=== PATIENT | male | born 1960 | race Caucasian/White ===

== ENCOUNTER 2016-09-08 08:31 | Emergency (ER) | payer MEDICARE, OTHER ==
[~2016-09-08] VITALS: Ht 185.4 cm; Wt 113.4 kg
[2016-09-08] MEDS: RT-ALBUTEROL/IPRATROPIUM 3 ML (DUONEB) VIAL ONE (08:58)
[2016-09-08 09:27] LABS: BASOPHILS % (AUTO) 0 % (0-10); EOSINOPHILS # (AUTO) 0.2 10^3/uL (0.0-0.3); EOSINOPHILS % (AUTO) 3 % (0-10); LYMPHOCYTES # (AUTO) 0.8 X 10^3 (1.0-4.0); LYMPHOCYTES % (AUTO) 14 % (12-44); MEAN CORPUSCULAR HEMOGLOBIN 20 PG (25-34); MEAN CORPUSCULAR HGB CONC 29 G/DL (32-36); MEAN CORPUSCULAR VOLUME 71 FL (80-99); MEAN PLATELET VOLUME 10.2 FL (7.4-10.4); MONOCYTES # (AUTO) 0.4 X 10^3 (0.0-1.0); MONOCYTES % (AUTO) 7 % (0-12); NEUTROPHILS # (AUTO) 4.5 X 10^3 (1.8-7.8); NEUTROPHILS % (AUTO) 76 % (42-75); PLATELET COUNT 198 10^3/uL (130-400); RED BLOOD COUNT 5.15 10^6/uL (4.35-5.85); WHITE BLOOD COUNT 5.9 10^3/uL (4.3-11.0)
--- NOTE | 2016-09-08 09:30 | Diagnostic Imaging Report ---
Indication: Dyspnea. Discussion: Single portable upright view of the chest was obtained, no comparison. There is volume loss noted within the right hemithorax with linear parenchymal densities which could represent scarring or postoperative changes. Recommend comparison with old films if available. If no comparisons are available, chest CT with contrast could be performed for further evaluation and to exclude an underlying pulmonary lesion. Opacities within the right lung base could represent atelectasis and/or pneumonia. The left lung is well-aerated. No pleural fluid or pneumothorax. Normal heart size. Impression: 1. Volume loss and opacities within the right lung as described. See above discussion and recommendations. Dictated by: Dictated on workstation # [id number]
[2016-09-08] MEDS: DEXAMETHASONE 4 MG/ML SDV (DECADRON) IH ONE (09:38)
[2016-09-08 09:53] LABS: ALANINE AMINOTRANSFERASE 12 U/L (0-55); ALBUMIN 4.1 GM/DL (3.2-4.5); ANION GAP 12 MMOL/L (5-14); ASPARTATE AMINO TRANSFERASE 18 U/L (5-34); BILIRUBIN,TOTAL 0.4 MG/DL (0.1-1.0); BLOOD UREA NITROGEN 17 MG/DL (7-18); BUN/CREATININE RATIO 17; CALCIUM 8.9 MG/DL (8.5-10.1); CARBON DIOXIDE 21 MMOL/L (21-32); CHLORIDE 108 MMOL/L (98-107); CREATININE SERUM 0.98 MG/DL (0.60-1.30); GFR ESTIMATED > 60; GLUCOSE 107 MG/DL (70-105); SODIUM 141 MMOL/L (135-145); TOTAL PROTEIN 7.2 GM/DL (6.4-8.2)
[2016-09-08] MEDS: RT-ALBUTEROL/IPRATROPIUM 3 ML (DUONEB) VIAL INH ONE (09:55)
[2016-09-08 10:23] LABS: BILIRUBIN,URINE NEGATIVE (NEGATIVE); KETONES,URINE NEGATIVE (NEGATIVE); LEUKOCYTE ESTERASE ,URINE NEGATIVE (NEGATIVE); NITRITE,URINE NEGATIVE (NEGATIVE); PH,URINE 6 (5-9); PROTEIN,URINE 2+ (NEGATIVE); UROBILINOGEN,URINE NORMAL (NORMAL)
[2016-09-08] MEDS: KETOROLAC 30 MG/ML VIAL IVP ONE (10:26)
--- NOTE | 2016-09-08 10:29 | ED Respiratory ---
General Chief Complaint: Respiratory Problems Stated Complaint: SOB Nursing Triage Note: PT TO ROOM 5 W CO OF SOA FOR WORSENING PAST 2 DAYS. PT WEARS O2 AT 3L N/C NORMALLY, HAS BEEN UP TO 4L TODAY. NO COUGH NOTED Source: patient Exam Limitations: no limitations History of Present Illness Time seen by provider: 10:24 Initial Comments The patient is a 55-year-old white male who presents today with complaints of increasing shortness of breath. He reports that this began last evening and has progressed. He is a 60+ pack year smoker and quit 2 years ago. The occasion of his quitting was a pneumothorax which failed chest tube and conservative therapy and required a thoracotomy. This was performed by Dr. López in [place]. He has a nebulizer and has home O2 which he uses at 3 L/m. He has not established a local physician. He also reports that he has hypertension and venous stasis but is not aware of any previous heart disease Timing/Duration: this morning Prior Episodes/Possible Cause: occasional episodes Modifying Factors: Improves With Albuterol Nebulizer Associated Symptoms: chest pain/soreness Allergies and Home Medications Allergies Coded Allergies: Sulfa (Sulfonamide Antibiotics) (Verified Allergy, Unknown, 09/08/16) Constitutional: see HPI EENTM: no symptoms reported Respiratory: see HPI, cough, dyspnea on exertion, short of breath Cardiovascular: no symptoms reported Gastrointestinal: no symptoms reported Genitourinary: no symptoms reported Musculoskeletal: no symptoms reported Skin: other (venous stasis dermatitis) Psychiatric/Neurological: No Symptoms Reported Hematologic/Lymphatic: No Symptoms Reported Immunological/Allergic: no symptoms reported Past Tomaqqz-Duszyd-Ckrsue Hx Patient Social History Alcohol Use: Denies Use Recreational Drug Use: No Smoking Status: Former Smoker Recent Foreign Travel: No Contact w/Someone Who Travel: No Recent Infectious Disease Expo: No Recent Hopitalizations: No Seasonal Allergies Seasonal Allergies: No Physical Exam Vital Signs Vital Sign - Last 12Hours 09/08/16 09/08/16 08:35 08:59 Temp 97.2 Pulse 71 Resp 28 B/P (MAP) 185/91 Pulse Ox 94 O2 Delivery Nasal Cannula O2 Flow Rate 4.00 Capillary Refill : Less Than 3 Seconds General Appearance: moderate distress Eyes: Bilateral Eye Normal Inspection HEENT: normal ENT inspection Neck: full range of motion Respiratory: decreased breath sounds (very distant. Inspiration appears shallow) Cardiovascular: normal peripheral pulses, regular rate, rhythm, no edema, no gallop, no JVD, no murmur Extremities: normal range of motion, non-tender, normal inspection, no pedal edema, no calf tenderness, other (there is a deep bronzy discoloration to both ankles. Keratotic plaques are noted. 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, no motor/sensory deficits, alert, normal mood/affect, oriented x 3 Skin: normal color, warm/dry, cyanosis, cool, diaphoresis, damp Lymphatic: no adenopathy, axilla node tender (R), axilla node tender (L), inguinal node tender (R), inguinal node tender (L) Progress/Results/Core Measures Results/Orders Lab Results Laboratory Tests Test 09/08/16 09:15 09/08/16 09:50 Range/Units White Blood Count 5.9 4.3-11.0 10^3/uL Red Blood Count 5.15 4.35-5.85 10^6/uL Hemoglobin 10.5 L 13.3-17.7 G/DL Hematocrit 37 L 40-54 % Mean Corpuscular Volume 71 L 80-99 FL Mean Corpuscular Hemoglobin 20 L 25-34 PG Mean Corpuscular Hemoglobin Concent 29 L 32-36 G/DL Red Cell Distribution Width 22.0 H 10.0-14.5 % Platelet Count 198 130-400 10^3/uL Mean Platelet Volume 10.2 7.4-10.4 FL Neutrophils (%) (Auto) 76 H 42-75 % Lymphocytes (%) (Auto) 14 12-44 % Monocytes (%) (Auto) 7 0-12 % Eosinophils (%) (Auto) 3 0-10 % Basophils (%) (Auto) 0 0-10 % Neutrophils # (Auto) 4.5 1.8-7.8 X 10^3 Lymphocytes # (Auto) 0.8 L 1.0-4.0 X 10^3 Monocytes # (Auto) 0.4 0.0-1.0 X 10^3 Eosinophils # (Auto) 0.2 0.0-0.3 10^3/uL Basophils # (Auto) 0.0 0.0-0.1 10^3/uL Sodium Level 141 135-145 MMOL/L Potassium Level 4.0 3.6-5.0 MMOL/L Chloride Level 108 H 98-107 MMOL/L Carbon Dioxide Level 21 21-32 MMOL/L Anion Gap 12 5-14 MMOL/L Blood Urea Nitrogen 17 7-18 MG/DL Creatinine 0.98 0.60-1.30 MG/DL Estimat Glomerular Filtration Rate > 60 BUN/Creatinine Ratio 17 Glucose Level 107 H 70-105 MG/DL Calcium Level 8.9 8.5-10.1 MG/DL Total Bilirubin 0.4 0.1-1.0 MG/DL Aspartate Amino Transf (AST/SGOT) 18 5-34 U/L Alanine Aminotransferase (ALT/SGPT) 12 0-55 U/L Alkaline Phosphatase 67 40-136 U/L Total Protein 7.2 6.4-8.2 GM/DL Albumin 4.1 3.2-4.5 GM/DL Urine Color YELLOW Urine Clarity CLEAR Urine pH 6 5-9 Urine Specific [place] 1.015 L 1.016-1.022 Urine Protein 2+ H NEGATIVE Urine Glucose (UA) NEGATIVE NEGATIVE Urine Ketones NEGATIVE NEGATIVE Urine Nitrite NEGATIVE NEGATIVE Urine Bilirubin NEGATIVE NEGATIVE Urine Urobilinogen NORMAL NORMAL MG/DL Urine Leukocyte Esterase NEGATIVE NEGATIVE Urine RBC (Auto) NEGATIVE NEGATIVE Urine RBC NONE /HPF Urine WBC NONE /HPF Urine Squamous Epithelial Cells RARE /HPF Urine Crystals NONE /LPF Urine Bacteria NEGATIVE /HPF Urine Casts NONE /LPF Urine Mucus NEGATIVE /LPF Urine Culture Indicated NO My Orders Orders - LACEY ALCARAZ MD Cbc With Automated Diff (09/08/16 08:52) Comprehensive Metabolic Panel (09/08/16 08:52) Ua Culture If Indicated (09/08/16 08:52) Albuterol/Ipra Inhalation Soln (Duoneb I (09/08/16 08:50) Chest 1 View, Ap/Pa Only (09/08/16 08:53) Dexamethasone Injection (Decadron Inject (09/08/16 09:00) Svn Sm Volume Nebulizer Rt-Rfs (09/08/16 08:53) Ekg Tracing (09/08/16 08:53) Albuterol/Ipra Inhalation Soln (Duoneb I (09/08/16 09:45) Ketorolac Injection (Toradol Injection) (09/08/16 10:30) Ct Chest W (09/08/16 10:22) Iohexol Injection (Omnipaque 350 Mg/Ml 1 (09/08/16 10:30) Medications Given in ED Current Medications Medications Dose Ordered Sig/Su Route Start Time Stop Time Status Last Admin Dose Admin Albuterol/ Ipratropium 3 ml STK-MED ONCE .ROUTE 09/08/16 08:50 09/08/16 08:56 DC 09/08/16 08:58 3 ML Iohexol 100 ml ONCE ONCE IV 09/08/16 10:30 09/08/16 10:31 DC 09/08/16 11:07 95 ML Ketorolac Tromethamine 30 mg ONCE ONCE IVP 09/08/16 10:30 09/08/16 10:31 DC 09/08/16 10:26 30 MG Vital Signs/I&O Vital Sign - Last 12Hours 09/08/16 09/08/16 08:35 08:59 Temp 97.2 Pulse 71 Resp 28 B/P (MAP) 185/91 Pulse Ox 94 96 O2 Delivery Nasal Cannula O2 Flow Rate 4.00 4.00 Blood Pressure Mean: 122 Departure Communication Progress Notes CT scan was reported as consistent with pleural scarring and subsequent restrictive lung disease on the right. This is consistent with his previous pneumothorax and operative intervention. In addition a 1.5 cm hilar node of questionable etiology was noted. Impression Impression: Primary Impression: COPD plus reactive lung disease Disposition: 01 HOME, SELF-CARE Condition: Improved Departure-Patient Inst. Decision time for Depature: 11:35 Referrals: NO,LOCAL PHYSICIAN (PCP) Primary Care Physician Patient Instructions: Pleuritic Chest Pain (DC) Add. Discharge Instructions: All discharge instructions reviewed with patient and/or family. Voiced understanding. Take prednisone as directed beginning tomorrow. Continue use of oxygen. You may use your nebulizer up to every 4 hours. If recurrence of sensation of inability to breathe return to the emergency room. He will likely be admitted LACEY ALCARAZ MD Sep 08, 2016 10:29
[2016-09-08 10:34] LABS: SQUAMOUS EPITHELIAL CELL,UR RARE /HPF
[2016-09-08] MEDS: IOHEXOL 350 MG/ML 100 ML (OMNIPAQUE 350) VIAL IV ONE (11:07)
--- NOTE | 2016-09-08 11:31 | Diagnostic Imaging Report ---
PROCEDURE: CT chest with contrast only. TECHNIQUE: Multiple contiguous axial images were obtained through the chest after administration of intravenous contrast. INDICATION: Shortness of breath. COMPARISON: No prior studies are available for comparison. FINDINGS: There is architectural distortion and right suprahilar irregular curvilinear areas of consolidation and interstitial thickening likely related to scarring. Correlate with prior infections, including possible prior TB and/or previous surgery. There is background emphysema with bullae seen in the upper aspect of the right upper lobe and apical segment of the right lower lobe. There is no consolidation to suggest pneumonia or definite mass. No pleural effusion. No pericardial effusion. The heart size is mildly enlarged with dilatation of the right sided cardiac chamber seen. The thoracic aorta is ectatic up to 3.9 cm in the mid ascending aorta and 3.8 cm in the proximal aortic arch. There is right paratracheal lymph node measuring 1.5 cm in size. No hilar lymphadenopathy. No axillary lymphadenopathy. Sections in the upper abdomen demonstrate no significant abnormality. Bridging syndesmophytes in the thoracic spine are seen. IMPRESSION: 1. Emphysema. 2. Findings in the right suprahilar region are suggestive of scarring, probably related to prior infection and possible prior surgery. Correlate with history. No active pneumonia or definite mass. 3. Mildly enlarged 1.5 cm right paratracheal lymph node of uncertain clinical significance. Dictated by: Dictated on workstation # [id number]
[2016-09-08] MEDS ORDERED: PRED10TA22 PO (11:47)
[2016-09-08] MEDS: methylPREDNISolone 125 MG (Solu-MEDROL) VIAL ONE (12:05)
[2016-09-08 12:06] VITALS: BP 165/85
== END 2016-09-08 12:07 | disposition home or self-care (01) ==
LOC: EDUNIT# 08:31 → ER 08:34
DX: J44.9 Chronic obstructive pulmonary disease, unspecified (principal); I10 Essential (primary) hypertension; I87.8 Other specified disorders of veins; Z87.891 Personal history of nicotine dependence; Z99.81 Dependence on supplemental oxygen
CPT/HCPCS: 36415; 71010; 71260; 80053; 81000; 85025; 93005; 94640

== ENCOUNTER 2016-09-29 16:11 | Emergency (ER) | payer MEDICARE ==
[~2016-09-29] VITALS: Ht 185.4 cm; Wt 113.4 kg
[~2016-09-29 16:11] MED LIST: PRED10TA22 PO
[2016-09-29] MEDS: RT-ALBUTEROL/IPRATROPIUM 3 ML (DUONEB) VIAL INH ONE ×2 (16:29→18:00)
[2016-09-29] MEDS: methylPREDNISolone 125 MG (Solu-MEDROL) VIAL IVP ONE (16:47)
--- NOTE | 2016-09-29 16:47 | Diagnostic Imaging Report ---
INDICATION: Shortness of breath for several months but worse today. COMPARISON STUDY: Chest from September 08. FINDINGS: Frontal view of the chest demonstrates cardiomegaly with normal vascularity. The lungs are clear. The fibrotic changes in the right apex are unchanged. IMPRESSION: Stable cardiomegaly and fibrotic changes in the right lung apex. Dictated by: Dictated on workstation # [id number]
[2016-09-29 16:56] LABS: BASOPHILS % (AUTO) 1 % (0-10); EOSINOPHILS # (AUTO) 0.1 10^3/uL (0.0-0.3); EOSINOPHILS % (AUTO) 1 % (0-10); LYMPHOCYTES # (AUTO) 0.8 X 10^3 (1.0-4.0); LYMPHOCYTES % (AUTO) 15 % (12-44); MEAN CORPUSCULAR HEMOGLOBIN 21 PG (25-34); MEAN CORPUSCULAR HGB CONC 29 G/DL (32-36); MEAN CORPUSCULAR VOLUME 72 FL (80-99); MEAN PLATELET VOLUME 11.2 FL (7.4-10.4); MONOCYTES # (AUTO) 0.5 X 10^3 (0.0-1.0); MONOCYTES % (AUTO) 10 % (0-12); NEUTROPHILS # (AUTO) 3.8 X 10^3 (1.8-7.8); NEUTROPHILS % (AUTO) 74 % (42-75); PLATELET COUNT 188 10^3/uL (130-400); RED BLOOD COUNT 4.86 10^6/uL (4.35-5.85); RED CELL DISTRIBUTION WIDTH 21.4 % (10.0-14.5); WHITE BLOOD COUNT 5.2 10^3/uL (4.3-11.0)
--- NOTE | 2016-09-29 18:03 | ED Cough/URI ---
General Chief Complaint: Respiratory Problems Stated Complaint: SOA Nursing Triage Note: c/o worsening soa. Onset this morning. Hx of COPD. Pt is oxygen dependent. Source: patient Exam Limitations: no limitations History of Present Illness Time seen by provider: 17:59 Initial Comments This 75-year-old white male presents with acute COPD exacerbation. The patient is out of his prednisone at home. He denies associated fever or chill. His sputum has been white. Patient denies significant fever, chills, back pain, headache, stiff neck, for associated nausea or vomiting. Allergies and Home Medications Allergies Coded Allergies: Sulfa (Sulfonamide Antibiotics) (Verified Allergy, Unknown, 09/08/16) Home Medications Prednisone 10 Mg Tab.ds.pk, 10 MG PO DAILY, #21 Take 6 tabs(60mg)daily,decrease by 1 tab(10MG)daily. Prescribed by: LACEY ALCARAZ on 09/08/16 7 Constitutional: No chills, No fever EENTM: No hearing loss Respiratory: cough, dyspnea on exertion, short of breath Cardiovascular: No chest pain, No edema, No palpitations Gastrointestinal: No abdominal pain, No nausea, No vomiting Musculoskeletal: No back pain Skin: No change in color Psychiatric/Neurological: Denies Anxiety Hematologic/Lymphatic: Denies Anemia Immunological/Allergic: no symptoms reported Past Efkdgfp-Fyddmu-Wnxtst Hx Patient Social History Alcohol Use: Denies Use Recreational Drug Use: No Smoking Status: Former Smoker Recent Foreign Travel: No Contact w/Someone Who Travel: No Recent Infectious Disease Expo: No Recent Hopitalizations: No Seasonal Allergies Seasonal Allergies: No Surgeries History of Surgeries: Yes (THOROCOTOMY,COLON RESECTION W COLOSTOMY, REANASTAMOSIS, HERNIA REPAIR) Reviewed Nursing Assessment Reviewed/Agree w Nursing PMH: Yes Physical Exam Vital Signs Vital Sign - Last 12Hours 09/29/16 09/29/16 16:22 16:30 Temp 97.5 Pulse 86 Resp 22 B/P (MAP) 182/91 Pulse Ox 97 O2 Delivery Nasal Cannula O2 Flow Rate 3.00 Capillary Refill : Less Than 3 Seconds General Appearance: WD/WN, mild distress Eyes: Bilateral Eye Normal Inspection HEENT: normal ENT inspection Neck: normal inspection Respiratory: decreased breath sounds, wheezing Cardiovascular: normal peripheral pulses, regular rate, rhythm Gastrointestinal: normal bowel sounds Extremities: normal range of motion Neurologic/Psychiatric: no motor/sensory deficits, alert, oriented x 3 Skin: normal color, warm/dry Progress/Results/Core Measures Results/Orders Lab Results Laboratory Tests Test 09/29/16 16:50 Range/Units White Blood Count 5.2 4.3-11.0 10^3/uL Red Blood Count 4.86 4.35-5.85 10^6/uL Hemoglobin 10.2 L 13.3-17.7 G/DL Hematocrit 35 L 40-54 % Mean Corpuscular Volume 72 L 80-99 FL Mean Corpuscular Hemoglobin 21 L 25-34 PG Mean Corpuscular Hemoglobin Concent 29 L 32-36 G/DL Red Cell Distribution Width 21.4 H 10.0-14.5 % Platelet Count 188 130-400 10^3/uL Mean Platelet Volume 11.2 H 7.4-10.4 FL Neutrophils (%) (Auto) 74 42-75 % Lymphocytes (%) (Auto) 15 12-44 % Monocytes (%) (Auto) 10 0-12 % Eosinophils (%) (Auto) 1 0-10 % Basophils (%) (Auto) 1 0-10 % Neutrophils # (Auto) 3.8 1.8-7.8 X 10^3 Lymphocytes # (Auto) 0.8 L 1.0-4.0 X 10^3 Monocytes # (Auto) 0.5 0.0-1.0 X 10^3 Eosinophils # (Auto) 0.1 0.0-0.3 10^3/uL Basophils # (Auto) 0.0 0.0-0.1 10^3/uL My Orders Orders - PAULIE SUMMERS MD Methylprednisolone Sod Succ (Solu-Medrol (09/29/16 16:30) Albuterol/Ipra Inhalation Soln (Duoneb I (09/29/16 16:30) Svn Sm Volume Nebulizer Rt-Rfs (09/29/16 16:22) Chest 1 View, Ap/Pa Only (09/29/16 16:23) Cbc With Automated Diff (09/29/16 16:23) Albuterol/Ipra Inhalation Soln (Duoneb I (09/29/16 17:45) Svn Sm Volume Nebulizer Rt-Rfs (09/29/16 17:38) Medications Given in ED Current Medications Medications Dose Ordered Sig/Su Route Start Time Stop Time Status Last Admin Dose Admin Albuterol/ Ipratropium 3 ml ONCE ONCE INH 09/29/16 16:30 09/29/16 16:31 DC 09/29/16 16:29 3 ML Methylprednisolone Sodium Succinate 125 mg ONCE ONCE IVP 09/29/16 16:30 09/29/16 16:31 DC 09/29/16 16:47 125 MG Vital Signs/I&O Vital Sign - Last 12Hours 09/29/16 09/29/16 16:22 16:30 Temp 97.5 Pulse 86 Resp 22 B/P (MAP) 182/91 Pulse Ox 97 97 O2 Delivery Nasal Cannula Nasal Cannula O2 Flow Rate 3.00 Blood Pressure Mean: 121 Progress Note : Time: 18:01 Progress Note Patient was treated with IV Solu-Medrol and given 2 DuoNeb treatments while in the emergency department. On this regimen the patient improved significantly and he stated that he was ready to go home. Patient's laboratory evaluation was essentially unremarkable. We'll place the patient on a course of oral steroids and asked that he have close follow-up with his caregivers on Sunday. Departure Impression Impression: Primary Impression: COPD exacerbation Disposition: HOME, SELF-CARE Condition: Improved Departure-Patient Inst. Decision time for Depature: 18:03 Referrals: [facility] (PCP) Primary Care Physician ERIS BOWMAN (Family) Primary Care Physician Patient Instructions: Exacerbation of COPD (DC) Add. Discharge Instructions: Prednisone as prescribed. Continue with nebulized treatments and inhalers at home. Follow up closely with your caregivers on Sunday. Return of any problems or questions. All discharge instructions reviewed with patient and/or family. Voiced understanding. PAULIE SUMMERS MD Sep 29, 2016 18:03
[2016-09-29 18:20] VITALS: BP 162/90
== END 2016-09-29 18:20 | disposition home or self-care (01) ==
LOC: EDUNIT# 16:11 → ER 16:13
DX: J44.1 Chronic obstructive pulmonary disease with (acute) exacerbation (principal); Z90.49 Acquired absence of other specified parts of digestive tract; Z87.891 Personal history of nicotine dependence; Z99.81 Dependence on supplemental oxygen
CPT/HCPCS: 36415; 71010; 85025; 94640

== ENCOUNTER → 2016-11-09 | Outpatient (CLI) | payer MEDICARE | LOC: CARD 13:19 | PROVIDERS: ATTEND Family Medicine | DX: R60.1 Generalized edema (principal); R06.02 Shortness of breath; R01.1 Cardiac murmur, unspecified | CPT/HCPCS: 93306 ==

== ENCOUNTER 2016-12-01 12:53 | Inpatient (IN) | payer MEDICARE ==
[~2016-12-01] VITALS: Ht 185.4 cm; Wt 113.4 kg
[2016-12-01] MEDS ORDERED: RT-ALBUTEROL/IPRATROPIUM 3 ML (DUONEB) VIAL INH ONE ×2 (13:00→15:00)
[2016-12-01] MEDS ORDERED: methylPREDNISolone 125 MG (Solu-MEDROL) VIAL IVP ONE (13:00)
--- NOTE | 2016-12-01 13:23 | ED Dyspnea ---
General Stated Complaint: SOA/CP Source of Information: Patient, EMS History of Present Illness Time Seen by Provider: 13:01 Initial Comments 56-year-old white male presents via the paramedics with a history of increasing shortness of breath for the past week. Patient has had multiple similar episodes in the past from his exacerbations of COPD. The patient's last episode of exacerbation of his COPD was treated successfully with steroids. Patient denies associated fever, headache, stiff neck, photophobia, nausea, vomiting, diarrhea, or dysuria. Patient has been experiencing right sided anterior chest pain today with shortness of breath. Patient has recently titrated off his prednisone which he attributes to his recurrence of shortness of breath. Allergies and Home Medications Allergies Coded Allergies: Sulfa (Sulfonamide Antibiotics) (Verified Allergy, Unknown, 09/08/16) Home Medications Prednisone 10 Mg Tab.ds.pk, 10 MG PO DAILY, #21 Take 6 tabs(60mg)daily,decrease by 1 tab(10MG)daily. Prescribed by: LACEY ALCARAZ on 09/08/16 8220 Constitutional: No chills, No fever EENTM: No hearing loss, No vision loss Respiratory: see HPI, cough, No hemoptysis, No orthopnea, short of breath, wheezing Cardiovascular: chest pain (the right anterior chest.) Gastrointestinal: No abdominal pain, No diarrhea, No nausea, No vomiting Genitourinary: no symptoms reported Musculoskeletal: No back pain Skin: No change in color, No rash Psychiatric/Neurological: No Symptoms Reported Endocrine: No Symptoms Reported Hematologic/Lymphatic: No Symptoms Reported Past Dpzutdg-Huglpc-Sckjtz Hx Patient Social History Recent Hopitalizations: No Seasonal Allergies Seasonal Allergies: No Surgeries History of Surgeries: Yes (THOROCOTOMY,COLON RESECTION W COLOSTOMY, REANASTAMOSIS, HERNIA REPAIR) Reviewed Nursing Assessment Reviewed/Agree w Nursing PMH: Yes Physical Exam Vital Signs Vital Sign - Last 12Hours 12/01/16 12/01/16 12:55 14:08 Temp 98.9 Pulse 72 Resp 13 B/P (MAP) 155/86 Pulse Ox 98 O2 Delivery Room Air O2 Flow Rate 2.00 Capillary Refill : General Appearance: No Apparent Distress, WD/WN HEENT: Normal ENT Inspection Neck: Non Tender Respiratory: Decreased Breath Sounds, Wheezing Cardiovascular: Irregularly Irregular Gastrointestinal: Normal Bowel Sounds Extremity: Normal Inspection, Normal Range of Motion Neurologic/Psychiatric: Alert, Oriented x3, No Motor/Sensory Deficits Skin: Normal Color, Warm/Dry Focused Exam Evaluation Lactate Level Laboratory Tests 12/01/16 15:10: Lactic Acid Level Laboratory Tests Test 12/01/16 15:10 Progress/Results/Core Measures Results/Orders Lab Results Laboratory Tests Test 12/01/16 13:27 12/01/16 15:10 Range/Units White Blood Count 6.1 4.3-11.0 10^3/uL Red Blood Count 4.15 L 4.35-5.85 10^6/uL Hemoglobin 9.2 L 13.3-17.7 G/DL Hematocrit 32 L 40-54 % Mean Corpuscular Volume 77 L 80-99 FL Mean Corpuscular Hemoglobin 22 L 25-34 PG Mean Corpuscular Hemoglobin Concent 29 L 32-36 G/DL Red Cell Distribution Width 19.1 H 10.0-14.5 % Platelet Count 210 130-400 10^3/uL Mean Platelet Volume 9.8 7.4-10.4 FL Neutrophils (%) (Auto) 69 42-75 % Lymphocytes (%) (Auto) 15 12-44 % Monocytes (%) (Auto) 13 H 0-12 % Eosinophils (%) (Auto) 3 0-10 % Basophils (%) (Auto) 1 0-10 % Neutrophils # (Auto) 4.2 1.8-7.8 X 10^3 Lymphocytes # (Auto) 0.9 L 1.0-4.0 X 10^3 Monocytes # (Auto) 0.8 0.0-1.0 X 10^3 Eosinophils # (Auto) 0.2 0.0-0.3 10^3/uL Basophils # (Auto) 0.0 0.0-0.1 10^3/uL Sodium Level 141 135-145 MMOL/L Potassium Level 4.3 3.6-5.0 MMOL/L Chloride Level 105 98-107 MMOL/L Carbon Dioxide Level 28 21-32 MMOL/L Anion Gap 8 5-14 MMOL/L Blood Urea Nitrogen 15 7-18 MG/DL Creatinine 0.77 0.60-1.30 MG/DL Estimat Glomerular Filtration Rate > 60 BUN/Creatinine Ratio 19 Glucose Level 90 70-105 MG/DL Calcium Level 8.6 8.5-10.1 MG/DL Total Bilirubin 0.3 0.1-1.0 MG/DL Aspartate Amino Transf (AST/SGOT) 17 5-34 U/L Alanine Aminotransferase (ALT/SGPT) 16 0-55 U/L Alkaline Phosphatase 44 40-136 U/L Troponin I < 0.30 <0.30 NG/ML B-Type Natriuretic Peptide 169.5 H <100.0 PG/ML Total Protein 6.2 L 6.4-8.2 GM/DL Albumin 3.6 3.2-4.5 GM/DL My Orders Orders - PAULIE SUMMERS MD Methylprednisolone Sod Succ (Solu-Medrol (12/01/16 13:00) Ekg Tracing (12/01/16 12:58) Troponin I (12/01/16 12:58) BNP (12/01/16 12:58) Comprehensive Metabolic Panel (12/01/16 12:58) Chest 1 View, Ap/Pa Only (12/01/16 12:58) Cbc With Automated Diff (12/01/16 12:58) Albuterol/Ipra Inhalation Soln (Duoneb I (12/01/16 13:00) Svn Sm Volume Nebulizer Rt-Rfs (12/01/16 12:59) Levofloxacin 750 Mg/150 Ml Iv (Levaquin (12/01/16 15:00) Albuterol/Ipra Inhalation Soln (Duoneb I (12/01/16 15:00) Svn Sm Volume Nebulizer Rt-Rfs (12/01/16 14:49) Blood Culture (12/01/16 14:58) Lactic Acid Analyzer (12/01/16 14:58) Medications Given in ED Current Medications Medications Dose Ordered Sig/Su Route Start Time Stop Time Status Last Admin Dose Admin Albuterol/ Ipratropium 3 ml ONCE ONCE INH 12/01/16 13:00 12/01/16 13:01 DC 12/01/16 14:07 3 ML Albuterol/ Ipratropium 3 ml ONCE ONCE INH 12/01/16 15:00 12/01/16 15:01 DC 12/01/16 15:11 3 ML Methylprednisolone Sodium Succinate 125 mg ONCE ONCE IVP 12/01/16 13:00 12/01/16 13:01 DC 12/01/16 13:19 125 MG Vital Signs/I&O Vital Sign - Last 12Hours 12/01/16 12/01/16 12/01/16 12:55 14:08 15:11 Temp 98.9 Pulse 72 Resp 13 B/P (MAP) 155/86 Pulse Ox 98 98 97 O2 Delivery Room Air Nasal Cannula Nasal Cannula O2 Flow Rate 2.00 2.00 Progress Note : Time: 14:50 Progress Note Patient's chest x-ray demonstrated cardiomegaly with evidence of increased vascularity. Furthermore the chest x-ray also demonstrated a bibasilar pneumonia. Patient was treated with a DuoNeb nebulized treatment, Solu-Medrol IV, and 750 mg of Levaquin as a loading dose for his apparent pneumonia. Blood cultures and lactic acid were obtained. Telephone consultation was undertaken with Drs. Fitzpatrick and Rupinder, who will admit and consult respectively. Departure Communication (Admissions) Time/Spoke to Admitting Phy: 15:[address] Fitzpatrick Time/Spoke to Consulting Phy: 15:41 Communication/Consulting Dr. Bucio. Impression Impression: Primary Impression: COPD exacerbation Additional Impression: Pneumonia Qualified Codes: J18.9 - Pneumonia, unspecified organism Disposition: ADMITTED INPATIENT Condition: Improved Admissions Decision to Admit Reason: Admit from ER (General) Decision to Admit/Date: Dec 01, 2016 Time/Decision to Admit Time: 15:42 Departure-Patient Inst. Referrals: SPARKLE FITZPATRICK DO (PCP) Primary Care Physician ERIS BOWMAN (Family) Primary Care Physician PAULIE SUMMERS MD Dec 01, 2016 13:23
[2016-12-01 13:34] LABS: BASOPHILS % (AUTO) 1 % (0-10); EOSINOPHILS # (AUTO) 0.2 10^3/uL (0.0-0.3); EOSINOPHILS % (AUTO) 3 % (0-10); LYMPHOCYTES # (AUTO) 0.9 X 10^3 (1.0-4.0); LYMPHOCYTES % (AUTO) 15 % (12-44); MEAN CORPUSCULAR HEMOGLOBIN 22 PG (25-34); MEAN CORPUSCULAR HGB CONC 29 G/DL (32-36); MEAN CORPUSCULAR VOLUME 77 FL (80-99); MEAN PLATELET VOLUME 9.8 FL (7.4-10.4); MONOCYTES # (AUTO) 0.8 X 10^3 (0.0-1.0); MONOCYTES % (AUTO) 13 % (0-12); NEUTROPHILS # (AUTO) 4.2 X 10^3 (1.8-7.8); NEUTROPHILS % (AUTO) 69 % (42-75); PLATELET COUNT 210 10^3/uL (130-400); RED BLOOD COUNT 4.15 10^6/uL (4.35-5.85); RED CELL DISTRIBUTION WIDTH 19.1 % (10.0-14.5); WHITE BLOOD COUNT 6.1 10^3/uL (4.3-11.0)
[2016-12-01 13:52] LABS: ALANINE AMINOTRANSFERASE 16 U/L (0-55); ALBUMIN 3.6 GM/DL (3.2-4.5); ANION GAP 8 MMOL/L (5-14); ASPARTATE AMINO TRANSFERASE 17 U/L (5-34); BILIRUBIN,TOTAL 0.3 MG/DL (0.1-1.0); BLOOD UREA NITROGEN 15 MG/DL (7-18); BUN/CREATININE RATIO 19; CALCIUM 8.6 MG/DL (8.5-10.1); CARBON DIOXIDE 28 MMOL/L (21-32); CHLORIDE 105 MMOL/L (98-107); CREATININE SERUM 0.77 MG/DL (0.60-1.30); GFR ESTIMATED > 60; GLUCOSE 90 MG/DL (70-105); POTASSIUM 4.3 MMOL/L (3.6-5.0); SODIUM 141 MMOL/L (135-145); TOTAL PROTEIN 6.2 GM/DL (6.4-8.2)
[2016-12-01 13:57] LABS: TROPONIN I < 0.30 NG/ML (<0.30)
--- NOTE | 2016-12-01 14:16 | Diagnostic Imaging Report ---
INDICATION: Shortness of air, chest pain. COMPARISON: 09/29/2016. FINDINGS: There is chronic scarring and bullous disease in the right upper lobe, stable. The heart is enlarged but not substantially changed from prior. Vascular congestion and perihilar and basilar mixed interstitial and airspace opacities present. Basilar parenchymal disease increased from prior, and while there is a chronic component present, the change itself could be suspicious for either edema or even pneumonia. IMPRESSION: Chronic or recurrent cardiomegaly. Increased venous congestion. Progressive perihilar and basilar pulmonary opacities with the change itself edema versus pneumonia. Chronic pleural-parenchymal changes in the right apex. Dictated by: Dictated on workstation # [id number]
[2016-12-01] MEDS ORDERED: LEVOFLOXACIN 750 MG/150 ML IV 150 ML IV ONE (15:00)
[2016-12-01] MEDS ORDERED: HYDROcodone/APAP 10 MG/325 MG (LORTAB) TAB PO ONE (16:00)
[2016-12-01 16:32] VITALS: BP 169/86
[2016-12-01] MEDS ORDERED: CATHETER FLUSH 10 ML SYR IV PRN (16:45)
[2016-12-01] MEDS: methylPREDNISolone 125 MG (Solu-MEDROL) VIAL IV SCH ×2 (18:01→23:11)
[2016-12-01 20:03] VITALS: BP 159/82
[2016-12-01] MEDS: RT-ALBUTEROL/IPRATROPIUM 3 ML (DUONEB) VIAL IH SCH (20:44)
[2016-12-01] MEDS: CATHETER FLUSH 10 ML SYR IV SCH (23:11)
[2016-12-01] MEDS: HYDROcodone/APAP 10 MG/325 MG (LORTAB) TAB PO PRN (23:11)
[2016-12-02 00:11] VITALS: BP 141/80
[2016-12-02 04:15] VITALS: BP 133/89
[2016-12-02] MEDS: CATHETER FLUSH 10 ML SYR IV SCH ×3 (06:14→19:28)
[2016-12-02] MEDS: HYDROcodone/APAP 10 MG/325 MG (LORTAB) TAB PO PRN ×3 (06:14→18:29)
[2016-12-02] MEDS: methylPREDNISolone 125 MG (Solu-MEDROL) VIAL IV SCH ×3 (06:14→11:50)
[2016-12-02 06:55] LABS: BASOPHILS % (AUTO) 0 % (0-10); EOSINOPHILS % (AUTO) 0 % (0-10); LYMPHOCYTES # (AUTO) 0.3 X 10^3 (1.0-4.0); LYMPHOCYTES % (AUTO) 8 % (12-44); MEAN CORPUSCULAR HEMOGLOBIN 22 PG (25-34); MEAN CORPUSCULAR HGB CONC 30 G/DL (32-36); MEAN CORPUSCULAR VOLUME 74 FL (80-99); MEAN PLATELET VOLUME 10.8 FL (7.4-10.4); MONOCYTES % (AUTO) 1 % (0-12); NEUTROPHILS # (AUTO) 3.4 X 10^3 (1.8-7.8); NEUTROPHILS % (AUTO) 91 % (42-75); PLATELET COUNT 222 10^3/uL (130-400); RED BLOOD COUNT 4.41 10^6/uL (4.35-5.85); RED CELL DISTRIBUTION WIDTH 18.7 % (10.0-14.5); WHITE BLOOD COUNT 3.8 10^3/uL (4.3-11.0)
[2016-12-02 07:08] LABS: ALANINE AMINOTRANSFERASE 15 U/L (0-55); ALBUMIN 3.7 GM/DL (3.2-4.5); ANION GAP 9 MMOL/L (5-14); ASPARTATE AMINO TRANSFERASE 14 U/L (5-34); BILIRUBIN,TOTAL 0.3 MG/DL (0.1-1.0); BLOOD UREA NITROGEN 17 MG/DL (7-18); BUN/CREATININE RATIO 21; CALCIUM 9.2 MG/DL (8.5-10.1); CARBON DIOXIDE 27 MMOL/L (21-32); CHLORIDE 103 MMOL/L (98-107); CREATININE SERUM 0.81 MG/DL (0.60-1.30); GFR ESTIMATED > 60; GLUCOSE 194 MG/DL (70-105); POTASSIUM 4.1 MMOL/L (3.6-5.0); SODIUM 139 MMOL/L (135-145); TOTAL PROTEIN 6.7 GM/DL (6.4-8.2)
[2016-12-02] MEDS: RT-ALBUTEROL/IPRATROPIUM 3 ML (DUONEB) VIAL IH SCH ×5 (07:16→18:53)
[2016-12-02 07:42] LABS: BAND NEUTROPHILS 2 %; LYMPHOCYTES % (MANUAL) 8 %; NEUTROPHILS % (MANUAL) 90 %
[2016-12-02 07:43] LABS: ANISOCYTOSIS MODERATE; BASOPHILS % (MANUAL) 0 %; EOSINOPHILS % (MANUAL) 0 %; HYPOCHROMASIA SLIGHT; MICROCYTOSIS SLIGHT; POLYCHROMASIA SLIGHT
[2016-12-02 08:38] VITALS: BP 144/77
[2016-12-02] MEDS ORDERED: LEVOFLOXACIN 500 MG/100 ML IV 100 ML IV SCH (09:00)
[2016-12-02] MEDS: LEVOFLOXACIN 750 MG TAB (LEVAQUIN) PO SCH (11:36)
[2016-12-02 12:49] VITALS: BP 157/83
[2016-12-02] MEDS ORDERED: LISI-556 PO (12:57)
[2016-12-02] MEDS ORDERED: ONDA4TAB10 SL (12:57)
[2016-12-02] MEDS ORDERED: DILT300C26 PO (12:57)
[2016-12-02] MEDS ORDERED: WARF4TAB70 PO (12:57)
[2016-12-02] MEDS ORDERED: HYDR-3820 PO (12:57)
[2016-12-02] MEDS ORDERED: ALBU2.5V4 IH (12:57)
[2016-12-02] MEDS ORDERED: BUDE10.2 IH (12:57)
[2016-12-02] MEDS ORDERED: GLIM2TAB PO (12:57)
[2016-12-02] MEDS ORDERED: ALBU18HF2 IH (12:57)
[2016-12-02] MEDS ORDERED: METF1000 PO (12:57)
[2016-12-02] MEDS ORDERED: BACL20TA PO (12:57)
[2016-12-02] MEDS ORDERED: TRAZ150T72 PO (12:57)
[2016-12-02] MEDS ORDERED: CARV6.252 PO (12:57)
[2016-12-02 16:33] VITALS: BP 138/83
[2016-12-02] MEDS ORDERED: ONDANSETRON 8 MG (ZOFRAN) ORAL DISSOLVE TAB PO PRN (18:15)
[2016-12-02] MEDS: predniSONE 20 MG TAB PO SCH ×3 (18:31→19:06)
[2016-12-02] MEDS: ONDANSETRON 8 MG (ZOFRAN) ORAL DISSOLVE TAB PO PRN (19:06)
--- NOTE | 2016-12-02 19:19 | Progress Note (SOAP) ---
IKE PIEDRA MED STUDENT 12/02/169: Subjective Subjective/Events-last exam Patient states he is "not feeling better," and is experiencing both b/l LE swelling and chronic right-sided abdominal pain stemming from a thoracotomy in due to atelectasis. Patient's last BM was "yesterday morning." Patient has had CXR since being admitted but has not undergone a CT yet. Patient is remains on 3L of O2, which is the same amount he has when home. Patient states he smoked cigarettes between 2 and 4 packs per day for 40 years, before quitting 2 years ago after the atelectasis and subsequent thoracotomy. Patient' s nurse Zoe states patient's last serum glucose was 194. Review of Systems Date Seen by Provider: Dec 02, 2016 Time Seen by Provider: 16:45 Objective Exam Last Set of Vital Signs Vital Signs Date Time Temp Pulse Resp B/P (MAP) Pulse Ox O2 Delivery O2 Flow Rate FiO2 12/02/16 18:54 96 Nasal Cannula 3.00 12/02/16 16:33 98.0 103 20 138/83 Capillary Refill : Less Than 3 Seconds I&O Intake and Output 12/03/16 00:00 Intake Total 880 ml Output Total 950 ml Balance -70 ml Intake Oral 880 ml Output Urine Total 950 ml # Voids 1 Daily Weight Change No General: Alert, Cooperative Heart: Regular Rate Extremities: Other (b/l LE edema) Skin: Other (discoloration along anterior aspect of both LEs (possible ecchymosis, hemosiderin deposition)) Neuro: Normal Speech Psych/Mental Status: Mental Status NL Results/Procedures Lab Laboratory Tests 12/02/16 05:40: White Blood Count 3.8L, Red Blood Count 4.41, Hemoglobin 9.8L, Hematocrit 33L, Mean Corpuscular Volume 74L, Mean Corpuscular Hemoglobin 22L, Mean Corpuscular Hemoglobin Concent 30L, Red Cell Distribution Width 18.7H, Platelet Count 222, Mean Platelet Volume 10.8H, Neutrophils (%) (Auto) 91H, Lymphocytes (%) (Auto) 8L, Monocytes (%) (Auto) 1, Eosinophils (%) (Auto) 0, Basophils (%) (Auto) 0, Neutrophils # (Auto) 3.4, Lymphocytes # (Auto) 0.3L, Monocytes # (Auto) 0.0, Eosinophils # (Auto) 0.0, Basophils # (Auto) 0.0, Neutrophils % (Manual) 90, Lymphocytes % (Manual) 8, Monocytes % (Manual) 0, Eosinophils % (Manual) 0, Basophils % (Manual) 0, Band Neutrophils 2, Polychromasia SLIGHT, Hypochromasia SLIGHT, Basophilic Stippling SLIGHT, Anisocytosis MODERATE, Microcytosis SLIGHT , Elliptocytes MODERATE, Sodium Level 139, Potassium Level 4.1, Chloride Level 103, Carbon Dioxide Level 27, Anion Gap 9, Blood Urea Nitrogen 17, Creatinine 0.81, Estimat Glomerular Filtration Rate > 60, BUN/Creatinine Ratio 21, Glucose Level 194H, Calcium Level 9.2, Total Bilirubin 0.3, Aspartate Amino Transf (AST/ SGOT) 14, Alanine Aminotransferase (ALT/SGPT) 15, Alkaline Phosphatase 45, Total Protein 6.7, Albumin 3.7 Microbiology 12/01/16 Blood Culture - Preliminary, Resulted No growth Assessment/Plan Assessment/Plan Admission Dx 1.) Exacerbation of COPD 2.) Pneumonia 3.) Emphysema 4.) DM-II 5.) Asthma 6.) Diverticulitis 7.) Bilateral LE edema 8.) Chronic steroid use Plan 1.) Restart patient's medications: Albuterol and Symbicort, Glipizide, Metformin , and Baclofen 2.) Switch patient's steroid to PO pill form 3.) Informed patient he will be stay in the hospital until Sunday, 12/04, when he will have a consult visit with Dr. Bucio (hydroelectric production technician) Clinical Quality Measures DVT/VTE Risk/Contraindication: Risk Factor Score Per Nursin RFS Level Per Nursing on Admit: 4+=Very High ERA LEES MD 12/03/16 1552: Assessment/Plan Assessment/Plan Plan See H&P from [facility] Dec 02, 2016 19:19 ERA LEES MD Dec 03, 2016 15:52
[2016-12-02 19:52] VITALS: BP 144/84
[2016-12-03] VITALS (7 sets, daily range): BP systolic 127–155; BP diastolic 71–86
[2016-12-03] MEDS: HYDROcodone/APAP 10 MG/325 MG (LORTAB) TAB PO PRN ×4 (01:03→23:11)
[2016-12-03] MEDS: CATHETER FLUSH 10 ML SYR IV SCH ×3 (06:02→21:10)
[2016-12-03] MEDS: RT-ALBUTEROL/IPRATROPIUM 3 ML (DUONEB) VIAL IH SCH ×4 (06:19→18:37)
[2016-12-03] MEDS: predniSONE 20 MG TAB PO SCH ×2 (08:44→21:11)
[2016-12-03] MEDS: LEVOFLOXACIN 750 MG TAB (LEVAQUIN) PO SCH (12:28)
--- NOTE | 2016-12-03 13:11 | Progress Note (SOAP) ---
IKE PIEDRA MED STUDENT 12/03/16 1311: Subjective Subjective/Events-last exam Patient reports he is "making progress" in regards to symptom resolution since last being seen yesterday (12/02) evening. Patient says his energy level is improved, but has remained bed-bound. Patient reports no issues with current medications, and he is currently on 4L of O2 and tolerating well. Patient is eating regular diet without incident. Review of Systems Date Seen by Provider: Dec 03, 2016 Time Seen by Provider: 11:30 General: No Chills Gastrointestinal: No: Nausea, Vomiting Objective Exam Last Set of Vital Signs Vital Signs Date Time Temp Pulse Resp B/P (MAP) Pulse Ox O2 Delivery O2 Flow Rate FiO2 12/03/16 10:06 96 Nasal Cannula 3.00 12/03/16 08:00 96.4 92 18 127/75 Capillary Refill : Less Than 3 Seconds I&O Intake and Output 12/04/16 00:00 Intake Total 250 ml Output Total 500 ml Balance -250 ml Intake Oral 250 ml Output Urine Total 500 ml General: Alert, Cooperative Lungs: Other (diffuse wheezing with no audible crackles on auscultation) Heart: Regular Rate Neuro: Normal Speech Results/Procedures Lab Microbiology 12/01/16 Blood Culture - Preliminary, Resulted No growth Assessment/Plan Assessment/Plan Plan 1.) Restart patient's medications: Albuterol and Symbicort, Glipizide, Metformin , Baclofen, and Trazadone 2.) Switch patient's steroid to PO pill form 3.) Informed patient he will be stay in the hospital until Sunday, 12/04, when he will have a consult visit with Dr. Bucio (data entry representative) 4.) Informed goal is to get down from 4L of O2 to 3L prior to discharge 5.) Informed of importance patient try to resume moving/ambulation as soon as he can Clinical Quality Measures DVT/VTE Risk/Contraindication: Risk Factor Score Per Nursin RFS Level Per Nursing on Admit: 4+=Very High ERA LEES MD 12/03/16 1584: Subjective Subjective/Events-last exam Patient feeling better this AM. Still not quite ready to go home. Tolerating PO diet. States he has been up moving around the room but has not went on a walk. Objective Exam Lungs: Other (diffuse wheezing with no audible crackles on auscultation, normal work of breathing) Extremities: No Edema, No Tenderness/Swelling Assessment/Plan Assessment/Plan Plan Patient seen and evaluated with Derrell Piedra, MS3 56 yo M admitted for COPD Exacerbation with possible PNA va pulmonary congestion Plan COPD Exacerbation with chronic oxygen dependence - Continue Steroids and Antibiotics - Titrate oxygen as tolerated, baseline 3L at home - Scheduled A/A nebs q4hrs with albuterol q2hr PRN - Consult Dr Bucio - Lasmart given in ED - Encouraged OOB and ambulation Acute on Chronic Respiratory Failure - See Above: COPD vs PNA vs Fluid overload HTN - Resume home medications Chronic Anticoagulation - INR pending, will hold Coumadin until level returns Microcytic Anemia - Iron pending, will continue to monitor, no signs of active bleeding NIDDM - Continue home meds - A1c pending FEN: DM diet DVT: Waiting on INR, Lovenox if subtherapeutic Dispo: Continue admission on Med/Surg IKE PIEDRA MED STUDENT Dec 03, 2016 13:11 ERA LEES MD Dec 03, 2016 15:54
[2016-12-03] MEDS: ONDANSETRON 8 MG (ZOFRAN) ORAL DISSOLVE TAB PO PRN (14:27)
[2016-12-03] MEDS ORDERED: TAMS0.4C2 PO (15:22)
[2016-12-03] MEDS ORDERED: FLUT16SP22 NSEACH (15:22)
--- NOTE | 2016-12-03 15:34 | History & Physicial (CHS) ---
HPI History of Present Illness: 56 yo M with known COPD that presented the ED with increasing shortness of breath and increased oxygen need. States that he was put on 1 month supple of steroids and he completed that course about 5 days ago and since then has been starting to feel worse. Has noticed some increased swelling in his legs. Denies any fevers or chills. Denies any sick contacts. Sees Dr Bucio as an outpatient. Source: patient, RN/, old records Exam Limitations: no limitations Date seen by provider: Dec 02, 2016 Time Seen by Provider: 16:00 Attending Physician Katina Ferrer DO PCP Katina Ferrer DO Consult Date of Admission Dec 01, 2016 at 15:20 Home Medications Home Medications Reviewed patient Home Medication Reconciliation Form Allergies Coded Allergies: Sulfa (Sulfonamide Antibiotics) (Verified Allergy, Unknown, 12/01/16) MWS-Gaztgl-Bnxket Hx Patient Social History Alcohol Use: Denies Use Recreational Drug Use: No Smoking Status: Heavy Tobacco Smoker Type Used: Cigarettes 2nd Hand Smoke Exposure: No Recent Foreign Travel: No Contact w/other who traveled: No Recent Hopitalizations: Yes ([facility] IN [place] 2015) Recent Infectious Disease Expo: No Physical Abuse Screen: No Sexual Abuse: No Immunizations Up To Date Date of Pneumonia Vaccine: Dec 02, 2015 Date of Influenza Vaccine: Nov 05, 2016 Past Medical History COPD Colon Resection with Reanastamosis HTN Family Medical History Family History: AIDS FH: COPD (chronic obstructive pulmonary disease) 19 MOTHER FH: heart attack G8 BROTHER FH: heart disease 19 FATHER FH: ovarian cancer 19 MOTHER FH: stroke G8 BROTHER Review of Systems (CHC) Constitutional: No chills, No fever, malaise, weakness EENTM: No nose congestion, No nose pain, No throat pain Respiratory: cough, dyspnea on exertion, No hemoptysis, No orthopnea, short of breath Cardiovascular: no symptoms reported, No chest pain, No edema, No palpitations Gastrointestinal: no symptoms reported, No constipation, No diarrhea, loss of appetite, No nausea, No vomiting Genitourinary: no symptoms reported, No dysuria, No frequency, No hematuria Musculoskeletal: no symptoms reported Skin: no symptoms reported, No lesions, No rash Psychiatric/Neurological: No Symptoms Reported, Denies Anxiety, Denies Depressed Reviewed Test Results Reviewed Test Results Lab Laboratory Tests Test 12/02/16 05:40 Range/Units White Blood Count 3.8 L 4.3-11.0 10^3/uL Red Blood Count 4.41 4.35-5.85 10^6/uL Hemoglobin 9.8 L 13.3-17.7 G/DL Hematocrit 33 L 40-54 % Mean Corpuscular Volume 74 L 80-99 FL Mean Corpuscular Hemoglobin 22 L 25-34 PG Mean Corpuscular Hemoglobin Concent 30 L 32-36 G/DL Red Cell Distribution Width 18.7 H 10.0-14.5 % Platelet Count 222 130-400 10^3/uL Mean Platelet Volume 10.8 H 7.4-10.4 FL Neutrophils (%) (Auto) 91 H 42-75 % Lymphocytes (%) (Auto) 8 L 12-44 % Monocytes (%) (Auto) 1 0-12 % Eosinophils (%) (Auto) 0 0-10 % Basophils (%) (Auto) 0 0-10 % Neutrophils # (Auto) 3.4 1.8-7.8 X 10^3 Lymphocytes # (Auto) 0.3 L 1.0-4.0 X 10^3 Monocytes # (Auto) 0.0 0.0-1.0 X 10^3 Eosinophils # (Auto) 0.0 0.0-0.3 10^3/uL Basophils # (Auto) 0.0 0.0-0.1 10^3/uL Neutrophils % (Manual) 90 % Lymphocytes % (Manual) 8 % Monocytes % (Manual) 0 % Eosinophils % (Manual) 0 % Basophils % (Manual) 0 % Band Neutrophils 2 % Polychromasia SLIGHT Hypochromasia SLIGHT Basophilic Stippling SLIGHT Anisocytosis MODERATE Microcytosis SLIGHT Elliptocytes MODERATE Sodium Level 139 135-145 MMOL/L Potassium Level 4.1 3.6-5.0 MMOL/L Chloride Level 103 98-107 MMOL/L Carbon Dioxide Level 27 21-32 MMOL/L Anion Gap 9 5-14 MMOL/L Blood Urea Nitrogen 17 7-18 MG/DL Creatinine 0.81 0.60-1.30 MG/DL Estimat Glomerular Filtration Rate > 60 BUN/Creatinine Ratio 21 Glucose Level 194 H 70-105 MG/DL Calcium Level 9.2 8.5-10.1 MG/DL Total Bilirubin 0.3 0.1-1.0 MG/DL Aspartate Amino Transf (AST/SGOT) 14 5-34 U/L Alanine Aminotransferase (ALT/SGPT) 15 0-55 U/L Alkaline Phosphatase 45 40-136 U/L Total Protein 6.7 6.4-8.2 GM/DL Albumin 3.7 3.2-4.5 GM/DL Radiology Date of Exam: 12/01/16 CHEST 1 VIEW, AP/PA ONLY INDICATION: Shortness of air, chest pain. COMPARISON: 09/29/2016. FINDINGS: There is chronic scarring and bullous disease in the right upper lobe, stable. The heart is enlarged but not substantially changed from prior. Vascular congestion and perihilar and basilar mixed interstitial and airspace opacities present. Basilar parenchymal disease increased from prior, and while there is a chronic component present, the change itself could be suspicious for either edema or even pneumonia. IMPRESSION: Chronic or recurrent cardiomegaly. Increased venous congestion. Progressive perihilar and basilar pulmonary opacities with the change itself edema versus pneumonia. Chronic pleural-parenchymal changes in the right apex. Physical Exam-(CHC) Physical Exam Vital Signs VS - Last 72 Hours, by Label 12/01/16 12/01/16 12/01/16 12/01/16 12:55 14:08 15:11 16:30 Temp 98.9 98.9 Pulse 72 68 Resp 13 16 B/P (MAP) 155/86 Pulse Ox 98 98 97 97 O2 Delivery Room Air Nasal Cannula Nasal Cannula Nasal Cannula O2 Flow Rate 2.00 2.00 3.00 12/01/16 12/01/16 12/01/16 12/01/16 16:32 18:07 20:03 20:46 Temp 97.0 97.6 Pulse 75 70 Resp 18 20 B/P (MAP) 169/86 159/82 Pulse Ox 95 94 98 98 O2 Delivery Nasal Cannula Nasal Cannula Nasal Cannula Nasal Cannula O2 Flow Rate 3.00 3.00 3.00 3.00 12/01/16 12/02/16 12/02/16 12/02/16 21:00 00:11 04:15 07:16 Temp 97.4 97.0 Pulse 90 81 Resp 18 18 B/P (MAP) 141/80 133/89 Pulse Ox 97 98 95 O2 Delivery Nasal Cannula Nasal Cannula Nasal Cannula Nasal Cannula O2 Flow Rate 3.00 3.00 3.00 3.00 12/02/16 12/02/16 12/02/16 12/02/16 08:00 08:38 11:44 12:49 Temp 98.7 97.8 Pulse 88 109 Resp 20 20 B/P (MAP) 144/77 157/83 Pulse Ox 96 98 98 O2 Delivery Nasal Cannula Nasal Cannula Nasal Cannula Nasal Cannula O2 Flow Rate 3.00 3.00 3.00 3.00 12/02/16 12/02/16 12/02/16 12/02/16 14:24 16:33 18:54 19:52 Temp 98.0 98.0 Pulse 103 108 Resp 20 20 B/P (MAP) 138/83 144/84 Pulse Ox 95 100 96 95 O2 Delivery Nasal Cannula Nasal Cannula Nasal Cannula Nasal Cannula O2 Flow Rate 3.00 3.50 3.00 3.50 12/02/16 12/03/16 12/03/16 12/03/16 21:00 00:29 04:00 06:19 Temp 95.3 96.0 Pulse 102 80 Resp 20 19 B/P (MAP) 143/74 137/71 Pulse Ox 96 96 92 O2 Delivery Nasal Cannula Nasal Cannula Nasal Cannula Nasal Cannula O2 Flow Rate 3.00 3.50 3.50 3.00 12/03/16 12/03/16 12/03/16 12/03/16 08:00 10:06 12:00 15:01 Temp 96.4 98.7 Pulse 92 113 Resp 18 20 B/P (MAP) 127/75 142/81 Pulse Ox 100 96 97 97 O2 Delivery Nasal Cannula Nasal Cannula Nasal Cannula Nasal Cannula O2 Flow Rate 3.00 3.00 3.00 3.00 Capillary Refill : Less Than 3 Seconds General Appearance: WD/WN, mild distress (increased work of breathing) HEENT: PERRL/EOMI Neck: non-tender, full range of motion, supple Respiratory: chest non-tender, no accessory muscle use, decreased breath sounds , crackles, wheezing Cardiovascular: normal peripheral pulses, regular rate, rhythm, no murmur Gastrointestinal: normal bowel sounds, non tender, soft, no organomegaly Back: normal inspection Extremities: normal range of motion, non-tender, normal inspection, no calf tenderness, normal capillary refill, pedal edema (trace bilaterally) Neurologic/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: 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 as tested, no motor/sensory deficits, alert, normal mood/affect, oriented x 3 Skin: normal color, warm/dry Lymphatic: no adenopathy Clinical Quality Measures DVT/VTE Risk/Contraindication: Risk Factor Score Per Nursin RFS Level Per Nursing on Admit: 4+=Very High Copy Copies To 1: ERA LEES MD Assessment/Plan Assessment/Plan Plan 56 yo M admitted for COPD Exacerbation with possible PNA va pulmonary congestion Plan COPD Exacerbation with chronic oxygen dependence - Continue Steroids and Antibiotics - Titrate oxygen as tolerated, baseline 3L at home - Scheduled A/A nebs q4hrs with albuterol q2hr PRN - Consult Dr Bucio - Jass given in ED - Encouraged OOB and ambulation Acute on Chronic Respiratory Failure - See Above: COPD vs PNA vs Fluid overload HTN - Resume home medications Chronic Anticoagulation - INR pending, will hold Coumadin until level returns Microcytic Anemia - Iron pending, will continue to monitor, no signs of active bleeding NIDDM - Continue home meds - A1c pending FEN: DM diet DVT: Waiting on INR, Lovenox if subtherapeutic Dispo: Admit to Med/Surg ERA LEES MD Dec 03, 2016 15:34
[2016-12-03] MEDS: lisINopril 5 MG (PRINIVIL) TABLET PO SCH (16:23)
[2016-12-03] MEDS ORDERED: warFARin 5 MG (COUMADIN) TAB PO SCH (18:00)
[2016-12-03] MEDS ORDERED: warFARin 3 MG (COUMADIN) TAB PO SCH (18:00)
[2016-12-03] MEDS ORDERED: ALFUZOSIN HCL 10 MG TAB (UROXATRAL) PO SCH (18:00)
[2016-12-03] MEDS: metFORMIN 500 MG (GLUCOPHAGE) TAB PO SCH (18:16)
[2016-12-03] MEDS ORDERED: traZODone 150 MG (DESYREL) TABLET PO SCH (21:00)
[2016-12-03] MEDS ORDERED: DILTIAZEM 300 MG (CARDIZEM CD) CAP PO SCH (21:00)
[2016-12-03] MEDS: CARVEDILOL 6.25 MG (COREG) TAB PO SCH (21:11)
[2016-12-03] MEDS: GLIMEPIRIDE 2 MG (AMARYL) TAB PO SCH (21:11)
[2016-12-04] VITALS: BP 122/65
[2016-12-04] MEDS: CATHETER FLUSH 10 ML SYR IV SCH ×2 (06:17→14:48)
[2016-12-04] MEDS: HYDROcodone/APAP 10 MG/325 MG (LORTAB) TAB PO PRN ×2 (06:18→12:02)
[2016-12-04] MEDS: metFORMIN 500 MG (GLUCOPHAGE) TAB PO SCH (06:18)
[2016-12-04] MEDS: RT-ALBUTEROL/IPRATROPIUM 3 ML (DUONEB) VIAL IH SCH ×3 (06:22→14:59)
[2016-12-04 06:29] LABS: BASOPHILS % (AUTO) 0 % (0-10); EOSINOPHILS % (AUTO) 0 % (0-10); LYMPHOCYTES # (AUTO) 0.5 X 10^3 (1.0-4.0); LYMPHOCYTES % (AUTO) 5 % (12-44); MEAN CORPUSCULAR HEMOGLOBIN 22 PG (25-34); MEAN CORPUSCULAR HGB CONC 30 G/DL (32-36); MEAN CORPUSCULAR VOLUME 74 FL (80-99); MEAN PLATELET VOLUME 10.6 FL (7.4-10.4); MONOCYTES # (AUTO) 0.3 X 10^3 (0.0-1.0); MONOCYTES % (AUTO) 3 % (0-12); NEUTROPHILS # (AUTO) 9.2 X 10^3 (1.8-7.8); NEUTROPHILS % (AUTO) 93 % (42-75); PLATELET COUNT 248 10^3/uL (130-400); RED BLOOD COUNT 4.51 10^6/uL (4.35-5.85); WHITE BLOOD COUNT 9.9 10^3/uL (4.3-11.0)
[2016-12-04 07:00] LABS: INR 1.5 (0.8-1.4)
[2016-12-04 07:04] LABS: ALANINE AMINOTRANSFERASE 15 U/L (0-55); ALBUMIN 3.5 GM/DL (3.2-4.5); ANION GAP 11 MMOL/L (5-14); ASPARTATE AMINO TRANSFERASE 16 U/L (5-34); BILIRUBIN,TOTAL 0.3 MG/DL (0.1-1.0); BLOOD UREA NITROGEN 22 MG/DL (7-18); BUN/CREATININE RATIO 27; CALCIUM 9.2 MG/DL (8.5-10.1); CARBON DIOXIDE 23 MMOL/L (21-32); CHLORIDE 102 MMOL/L (98-107); CREATININE SERUM 0.81 MG/DL (0.60-1.30); GFR ESTIMATED > 60; GLUCOSE 136 MG/DL (70-105); POTASSIUM 4.8 MMOL/L (3.6-5.0); SODIUM 136 MMOL/L (135-145); TOTAL PROTEIN 6.4 GM/DL (6.4-8.2)
--- NOTE | 2016-12-04 07:22 | Pulmonary Consultation ---
History of Present Illness History of Present Illness Date of Consultation 12/04/16 07:17 Time Seen by Provider: 07:17 Date of Admission History of Present Illness 56yo with hx of severe oxygen dependent COPD presented to ED secondary to worsening SOB. Pt has been on out patient steroids and upon completion of steroid coarse he began feeling worse. No f/c. I am consulted for pulmonary management. Allergies and Home Medications Allergies Coded Allergies: Sulfa (Sulfonamide Antibiotics) (Verified Allergy, Unknown, 12/01/16) Home Medications Albuterol Sulfate 2.5 Mg/3 Ml Vial.neb, 2.5 MG IH Q4H PRN for SHORTNESS OF BREATH, (Reported) Albuterol Sulfate 18 Gm Hfa.aer.ad, 2 PUFF IH Q4H PRN for SHORTNESS OF BREATH, ( Reported) Baclofen 20 Mg Tablet, 20 MG PO Q8H, (Reported) Carvedilol 6.25 Mg Tablet, 6.25 MG PO BID, (Reported) LAST FILLED 09/22/16 #60 Diltiazem HCl 300 Mg Cap.er.24h, 300 MG PO HS, (Reported) Fluticasone Propionate 16 Gm [place].susp, 1 SPRAY NSEACH DAILY PRN for ALLERGIES, (Reported) Glimepiride 2 Mg Tablet, 2 MG PO BID, (Reported) Hydrocodone/Acetaminophen 1 Each Tablet, 1 TAB PO Q6H PRN for PAIN-MODERATE TO SEVERE, (Reported) Lisinopril 5 Mg Tablet, 5 MG PO DAILY, (Reported) LAST FILLED 07/31/16 #30 Metformin HCl 1,000 Mg Tablet, 1,000 MG PO BID, (Reported) Ondansetron HCl 4 Mg Tablet, 4 MG SL Q8H PRN for NAUSEA/VOMITING-1ST LINE, ( Reported) Tamsulosin HCl 0.4 Mg Cap.er.24h, 0.4 MG PO DAILY, (Reported) Trazodone HCl 150 Mg Tablet, 150 MG PO HS, (Reported) LAST FILLED 09/22/16 #30 Warfarin Sodium 4 Mg Tablet, 8 MG PO HS, (Reported) TAKES 2 (4 MG) TABLETS Past Oehkvic-Mxivlx-Ctmhoz Hx Patient Social History Alcohol Use: Denies Use Recreational Drug Use: No Smoking Status: Heavy Tobacco Smoker Type Used: Cigarettes 2nd Hand Smoke Exposure: No Recent Foreign Travel: No Contact w/Someone Who Travel: No Recent Infectious Disease Expo: No [facility]: [facility] Physical Abuse: No Sexual Abuse: No Immunizations Up To Date Date of Pneumonia Vaccine: Dec 02, 2015 Date of Influenza Vaccine: Nov 05, 2016 Seasonal Allergies Seasonal Allergies: No Surgeries History of Surgeries: Yes (THORACOTOMY 2014, ILLEOSTOMY 2016, ILLEOSTOMY REVERS 2017, VEIN STRIPPING L) Respiratory Respiratory Disorders: Pneumonia, COPD Currently Using CPAP: No Currently Using BIPAP: No Cardiovascular History of Cardiac Disorders: Yes (AFIB) Neurological History of Neurological Disord: No Reproductive System Sexually Transmitted Disease: No HIV/AIDS: No Genitourinary History of Genitourinary Disor: No Genitourinary Disorders: Prostate Problems Gastrointestinal Gastrointestinal Disorders: Gastroesophageal Reflux, Diverticulosis, Hemorrhoids Musculoskeletal History of Musculoskeletal Dis: Yes Musculoskeletal Disorders: Arthritis, Rheumatoid Arthritis Endocrine History of Endocrine Disorders: Yes Are Your Blood Sugars Over 250: No HEENT History of HEENT Disorders: No Loss of Vision: Bilateral Hearing Impairment: Denies Cancer History of Cancer: No Psychosocial History of Psychiatric Problem: Yes Behavioral Health Disorders: Depression Suicide Risk Score: 0 Integumentary History of Skin or Integumenta: No Blood Transfusions History of Blood Disorders: No Adverse Reaction to a Blood Tr: No Reviewed Nursing Assessment Reviewed/Agree w Nursing PMH: Yes Family Medical History Family Medial History: AIDS FH: COPD (chronic obstructive pulmonary disease) 19 MOTHER FH: heart attack G8 BROTHER FH: heart disease 19 FATHER FH: ovarian cancer 19 MOTHER FH: stroke G8 BROTHER Review of Systems Time Seen by Provider: 07:24 Constitutional: Weakness, Malaise, No: Fever, Chills, Sweats, Other Eyes: No: Pain, Vision change, Conjunctivae inflammation, Eyelid inflammation, Other, Redness ENT: No: Ear pain, Ear discharge, Nose pain, Nose discharge, Nose congestion, Mouth pain, Mouth swelling, Throat pain, Throat swelling, Other Respiratory: Cough, Dry, Shortness of breath, SOB with excertion, Wheezing, No : Hemoptysis Cardiovascular: Orthopnea, Paroxysmal Noc. Dyspnea, Edema Gastrointestinal: No: Nausea, Vomiting, Abdominal Pain, Diarrhea, Constipation , Melena, Hematochezia, Other Exam Exam Vital Signs Date Time Temp Pulse Resp B/P (MAP) Pulse Ox O2 Delivery O2 Flow Rate FiO2 12/04/16 06:22 95 Nasal Cannula 3.00 12/04/16 00:00 97.8 69 18 122/65 95 Nasal Cannula 3.00 12/03/16 21:00 Nasal Cannula 3.00 12/03/16 19:28 97.1 102 20 142/83 95 Nasal Cannula 3.00 12/03/16 18:37 95 Nasal Cannula 3.00 12/03/16 15:31 98.9 98 20 155/86 97 Nasal Cannula 3.00 12/03/16 15:01 97 Nasal Cannula 3.00 12/03/16 12:00 98.7 113 20 142/81 97 Nasal Cannula 3.00 12/03/16 10:06 96 Nasal Cannula 3.00 12/03/16 08:15 Nasal Cannula 3.00 12/03/16 08:00 96.4 92 18 127/75 100 Nasal Cannula 3.00 General Appearance: No Apparent Distress, WD/WN HEENT: Normal ENT Inspection Neck: Non Tender Respiratory: Decreased Breath Sounds, Wheezing Cardiovascular: Irregularly Irregular Capillary Refill: Less Than 3 Seconds Gastrointestinal: normal bowel sounds, non tender, soft, no organomegaly Extremity: Normal Inspection, Normal Range of Motion Neurologic/Psychiatric: Alert, Oriented x3, No Motor/Sensory Deficits Skin: Normal Color, Warm/Dry Results Lab Laboratory Tests 12/04/16 05:44 Assessment/Plan Assessment/Plan COPDAE with oxygen dependance -prednisone taper -Repeat CXR Levaquin for total 5days then D/C -SVNs, advair Acute on chronic respiratory failure 254 Clinical Quality Measures DVT/VTE Risk/Contraindication: Risk Factor Score Per Nursin RFS Level Per Nursing on Admit: 4+=Very High NICK TRAVIS DO Dec 04, 2016 07:22
[2016-12-04] MEDS ORDERED: predniSONE 10 MG TAB PO SCH (07:52)
[2016-12-04] MEDS ORDERED: RT-ADVAIR HFA 115/21 MCG PER PUFF IH SCH (08:00)
[2016-12-04 08:35] VITALS: BP 125/71
[2016-12-04] MEDS: CARVEDILOL 6.25 MG (COREG) TAB PO SCH (09:06)
[2016-12-04] MEDS: GLIMEPIRIDE 2 MG (AMARYL) TAB PO SCH (09:06)
[2016-12-04] MEDS: lisINopril 5 MG (PRINIVIL) TABLET PO SCH (09:06)
[2016-12-04 09:38] LABS: ABG HCO3 28 MMOL/L (23-27); ABG OXYGEN SATURATION 97 % (94-100); ABG PCO2 47 MMHG (35-45); ABG PH 7.38 (7.37-7.43); ABG PO2 81 MMHG (79-93); ABG TCO2 29.3 MMOL/L (21.0-31.0); ALLENS TEST POSITIVE; PATIENT TEMP 97.7
[2016-12-04] MEDS: LEVOFLOXACIN 750 MG TAB (LEVAQUIN) PO SCH (11:59)
--- NOTE | 2016-12-04 14:05 | Discharge Summary ---
Diagnosis/Chief Complaint Date of Admission Dec 01, 2016 at 3:20 pm Date of Discharge Chief Complaint/HPI Chief Complaint/HPI 56 yo M with known COPD that presented the ED with increasing shortness of breath and increased oxygen need. States that he was put on 1 month supple of steroids and he completed that course about 5 days ago and since then has been starting to feel worse. Has noticed some increased swelling in his legs. Denies any fevers or chills. Denies any sick contacts. Sees Dr Bucio as an outpatient. Discharge Summary-Simple/Stand Consultations Discharge Physical Examination Allergies: Coded Allergies: Sulfa (Sulfonamide Antibiotics) (Verified Allergy, Unknown, 12/01/16) Vitals & I&Os Vital Sign - Last 12Hours Date Time Temp Pulse Resp B/P (MAP) Pulse Ox O2 Delivery O2 Flow Rate FiO2 12/04/16 10:56 96 Nasal Cannula 3.00 12/04/16 08:35 98.9 100 20 125/71 Hospital Course See final discharge diagnosis. Radiology Reviewed Date of Exam: 12/01/16 CHEST 1 VIEW, AP/PA ONLY INDICATION: Shortness of air, chest pain. COMPARISON: 09/29/2016. FINDINGS: There is chronic scarring and bullous disease in the right upper lobe, stable. The heart is enlarged but not substantially changed from prior. Vascular congestion and perihilar and basilar mixed interstitial and airspace opacities present. Basilar parenchymal disease increased from prior, and while there is a chronic component present, the change itself could be suspicious for either edema or even pneumonia. IMPRESSION: Chronic or recurrent cardiomegaly. Increased venous congestion. Progressive perihilar and basilar pulmonary opacities with the change itself edema versus pneumonia. Chronic pleural-parenchymal changes in the right apex. Discharge Instructions to patient/family Please see electronic discharge instructions given to patient. Discharge Medications Reviewed and agree with Discharge Medication list on patient's Discharge Instruction sheet Clinical Quality Measures DVT/VTE Risk/Contraindication: Risk Factor Score Per Nursin RFS Level Per Nursing on Admit: 4+=Very High LYNNE AG MD Dec 04, 2016 2:05 pm
[2016-12-04] MEDS ORDERED: FLUT1DIS27 IH (14:10)
[2016-12-04] MEDS ORDERED: LEVO750T39 PO (14:10)
[2016-12-04] MEDS ORDERED: PRED10TA22 PO (14:10)
--- NOTE | 2016-12-04 14:15 | Discharge Instructions ---
Discharge [facility] Discharge Medications New, Converted or Re-Newed RX: Transmitted to Pharmacy New Medications: Fluticasone/Salmeterol (Advair 500-50 Diskus) 1 Each Blst.w.dev 1 EACH IH BID, #1 EA 1 Refill Prednisone (Prednisone) 10 Mg Tab.ds.pk 10 MG PO DAILY, #42 PKG Take 6 tabs(60mg)daily,decrease by 1 tab(10mg)every other day. Levofloxacin (Levofloxacin) 750 Mg Tablet 750 MG PO DAILY@1100 for 5 Days, #5 TAB 0 Refills Continued Medications: Albuterol Sulfate (Albuterol Sulfate) 2.5 Mg/3 Ml Vial.neb 2.5 MG IH Q4H PRN for SHORTNESS OF BREATH Albuterol Sulfate (Ventolin Hfa) 18 Gm Hfa.aer.ad 2 PUFF IH Q4H PRN for SHORTNESS OF BREATH Baclofen (Baclofen) 20 Mg Tablet 20 MG PO Q8H Carvedilol (Carvedilol) 6.25 Mg Tablet 6.25 MG PO BID LAST FILLED 09/22/16 #60 Diltiazem HCl (Cartia Xt) 300 Mg Cap.er.24h 300 MG PO HS Fluticasone Propionate (Fluticasone Propionate) 16 Gm [place].susp 1 SPRAY NSEACH DAILY PRN for ALLERGIES Glimepiride (Glimepiride) 2 Mg Tablet 2 MG PO BID Hydrocodone/Acetaminophen (Hydrocodon-Acetaminophn 10-325) 1 Each Tablet 1 TAB PO Q6H PRN for PAIN-MODERATE TO SEVERE Lisinopril (Lisinopril) 5 Mg Tablet 5 MG PO DAILY LAST FILLED 07/31/16 #30 Metformin HCl (Metformin HCl) 1,000 Mg Tablet 1000 MG PO BID Ondansetron HCl (Ondansetron HCl) 4 Mg Tablet 4 MG SL Q8H PRN for NAUSEA/VOMITING-1ST LINE Tamsulosin HCl (Tamsulosin HCl) 0.4 Mg Cap.er.24h 0.4 MG PO DAILY Trazodone HCl (Trazodone HCl) 150 Mg Tablet 150 MG PO HS LAST FILLED 09/22/16 #30 Warfarin Sodium (Warfarin Sodium) 4 Mg Tablet 8 MG PO HS TAKES 2 (4 MG) TABLETS Patient Instructions Goal/Follow Up Appt: -DR FITZPATRICK OCTOBER 31 AT 10:20 -DR TRAVIS HE RECOMMENDED DURING YOUR HOSPITALIZATION Patient Instructions: -PLEASE TAKE ALL MEDICATIONS PRESCRIBED Return to The Hospital For: INCREASED COUGH AND SHORTNESS OF BREATH Activity & Diet Discharge Diet: No Restrictions Activity as Tolerated: Yes Copy Copies To 1: SPARKLE FITZPATRICK JULIE A MD Dec 04, 2016 2:11 pm
== END 2016-12-04 15:00 | disposition home or self-care (01) | DRG 189 ==
LOC: EDUNIT# 12:53 → ER 12:54 → 4TH 15:20
PROVIDERS: ADMIT Family Medicine; ATTEND Family Medicine
DX: J96.20 Acute and chronic respiratory failure, unspecified whether with hypoxia or hypercapnia (principal); J44.1 Chronic obstructive pulmonary disease with (acute) exacerbation; J18.9 Pneumonia, unspecified organism; E87.70 Fluid overload, unspecified; I10 Essential (primary) hypertension; D50.9 Iron deficiency anemia, unspecified; E11.9 Type 2 diabetes mellitus without complications; K57.90 Diverticulosis of intestine, part unspecified, without perforation or abscess without bleeding; I48.91 Unspecified atrial fibrillation; K21.9 Gastro-esophageal reflux disease without esophagitis; M06.9 Rheumatoid arthritis, unspecified; M19.91 Primary osteoarthritis, unspecified site; F32.9 Major depressive disorder, single episode, unspecified; Z99.81 Dependence on supplemental oxygen; Z79.52 Long term (current) use of systemic steroids; Z90.49 Acquired absence of other specified parts of digestive tract; Z79.01 Long term (current) use of anticoagulants
CPT/HCPCS: 36415; 71010; 80053; 82728; 82805; 83036; 83540; 83605; 83880; 84484; 85007; 85025; 85027; 85610; 87040; 93005; 94640; 94760; 96365; 96375

== ENCOUNTER 2016-12-22 21:00 | Outpatient (CLI) | payer MEDICARE ==
[~2016-12-22 21:00] MED LIST changes: -RT-ALBUTEROL SULF 2.5 MG/3 ML PRE-MIX VIAL IH ONE
== END 2016-12-23 07:10 | disposition home or self-care (01) ==
LOC: SLEEP 21:00
PROVIDERS: ATTEND Internal Medicine Critical Care Medicine
DX: G47.30 Sleep apnea, unspecified (principal); J44.9 Chronic obstructive pulmonary disease, unspecified; J18.9 Pneumonia, unspecified organism; E66.9 Obesity, unspecified
CPT/HCPCS: 95811

== ENCOUNTER → 2016-12-22 | Outpatient (CLI) | payer MEDICARE ==
[~2016-12-22] MED LIST changes: +ALBU18HF2 IH; +ALBU2.5V4 IH; +BACL20TA PO; +BUDE10.2 IH; +CARV6.252 PO; +DILT300C26 PO; +DIPH25TA65 PO; +FLUT16SP22 NSEACH; +FLUT1BLS IH; +FLUT1DIS27 IH; +FURO-124 PO; +GLIM2TAB PO; +HYDR-3820 PO; +LEVO750T39 PO; +LISI-556 PO; +METF1000 PO; +ONDA4TAB10 SL; +POTA20TA8 PO; +RT-ALBUTEROL SULF 2.5 MG/3 ML PRE-MIX VIAL IH ONE; +TAMS0.4C2 PO; +TIOT4MIS2 IH; +TRAZ150T72 PO; +WARF4TAB70 PO
== END ==
LOC: RT 11:01
PROVIDERS: ATTEND Internal Medicine Critical Care Medicine
DX: J44.9 Chronic obstructive pulmonary disease, unspecified (principal); J18.9 Pneumonia, unspecified organism; E66.9 Obesity, unspecified; G47.30 Sleep apnea, unspecified
CPT/HCPCS: 94060; 94726; 94729

== ENCOUNTER → 2017-04-19 | Outpatient (CLI) | payer MEDICARE ==
--- NOTE | 2017-04-19 17:36 | Diagnostic Imaging Report ---
EXAMINATION: PA and lateral chest at 04:52 p.m. INDICATION: Emphysema, COPD, pneumonia, and shortness of breath. FINDINGS: The cardiomegaly and the chronic pulmonary changes evident on the prior exam of 12/12/2016 are again visualized and essentially no different. The central pulmonary vascularity about the left hilum is prominent but no different than on the prior study. There is no sign of failure, pneumonia, or pleural effusion to indicate an acute abnormality. The mediastinum is not widened. The osseous structures are intact. IMPRESSION: There is cardiomegaly and chronic pulmonary disease, but there is no sign of an acute cardiopulmonary abnormality. When compared with the prior study, there does not appear to have been any significant adverse change. Dictated by: Dictated on workstation # [id number]
== END ==
LOC: RAD 15:36
PROVIDERS: ATTEND Nurse Practitioner Family
DX: J43.9 Emphysema, unspecified (principal); J18.9 Pneumonia, unspecified organism; I51.7 Cardiomegaly
CPT/HCPCS: 71046